=== PATIENT | female | born 1970 | race Caucasian/White ===

== ENCOUNTER → 2017-07-11 | Outpatient (CLI) | payer MEDICAID ==
[~2017-07-11] MED LIST: CLINDAMYCIN300 MG PO; CYMBALTA; DILAUDID2 MG PO; DILAUDID4 MG PO; GABAPENTIN; HYDROCODONE/APAP; MULTIPLE VITAMI1 CAP PO; NORCO 325 MG-101 TAB PO
== END ==
LOC: COL.VAS 10:45
DX: R03.0 Elevated blood-pressure reading, without diagnosis of hypertension (principal); R00.2 Palpitations; F17.210 Nicotine dependence, cigarettes, uncomplicated; Z86.79 Personal history of other diseases of the circulatory system

== ENCOUNTER 2018-01-04 17:36 | Emergency (ER) | payer MEDICAID ==
[~2018-01-04] VITALS: Ht 160 cm; Wt 56.8 kg
[2018-01-04 17:50] VITALS: BP 136/78; PULSE 83; TEMP 98.9
[2018-01-04] MEDS ORDERED: ROXICODONE 55 MG/TAB PO (18:08)
== END 2018-01-04 18:26 | disposition home or self-care (01) ==
LOC: COL.ER 17:36
DX: G89.29 Other chronic pain (principal); M54.5 Low back pain; F17.210 Nicotine dependence, cigarettes, uncomplicated; Z98.890 Other specified postprocedural states

== ENCOUNTER → 2018-08-28 | Outpatient (CLI) | payer MEDICAID ==
[~2018-08-28] MED LIST changes: +ROXICODONE 55 MG/TAB PO
== END ==
LOC: COL.RAD 13:58
DX: M16.11 Unilateral primary osteoarthritis, right hip (principal); Z98.1 Arthrodesis status